=== PATIENT | male | born 1985 | race Caucasian/White ===

== ENCOUNTER 2017-12-08 17:23 | Emergency (ER) | payer BC ==
[2017-12-08 17:41] VITALS: BP 140/90
--- NOTE | 2017-12-08 18:01 | EDM.PDOC ---
ED HPI GENERAL MEDICAL PROBLEM - General Chief Complaint: ENT Problem Stated Complaint: SWOLLEN GLANDS NECK Time Seen by Provider: 12/08/17 17:56 Source of Information: Reports: Patient History Limitations: Reports: No Limitations - History of Present Illness INITIAL COMMENTS - FREE TEXT/NARRATIVE: 31 YO WM presents to ER with sudden onset glandular swelling in neck and jaw. Pt reports he was drinking poweraid when he develped pressure and discomfort in his jaw and behind his ears bilaterally. Pt reports recent viral URI which resolved a few days ago. Pt denies any fever/chills. Pt denies any difficulty swallowing or breathing. Pt reports PMH of tonsilectomy with adenoidectomy. Onset: Sudden Duration: Hour(s): (4) Location: Reports: Neck Severity: Moderate Improves with: Reports: None Worsens with: Reports: None Associated Symptoms: Reports: No Other Symptoms. Denies: Chest Pain, Cough, Fever/Chills, Headaches, Nausea/Vomiting, Rash, Shortness of Breath, Weakness Bilateral Neck Pain Score (Numeric/FACES): 7 - Related Data Allergies Allergy/AdvReac Type Severity Reaction Status Date / Time No Known Drug Allergies Allergy Other Verified 12/08/17 17:44 Home Meds: Home Meds Escitalopram [Lexapro] 20 mg PO DAILY 12/04/16 [History] Amoxicillin/Clavulanate K [Augmentin 875-125 MG] 1 tab PO BID #24 tablet [Rx] Ibuprofen [Motrin] 800 mg PO TID #15 tablet 12/08/17 [Rx] Past Medical History HEENT History: Reports: None Respiratory History: Reports: Pneumonia, Recurrent Gastrointestinal History: Reports: None Psychiatric History: Reports: Anxiety, Panic Attack - Infectious Disease History Infectious Disease History: Reports: Chicken Pox - Past Surgical History HEENT Surgical History: Reports: Tonsillectomy GI Surgical History: Reports: Hernia, Abdominal Male Surgical History: Reports: Vasectomy Social & Family History - Family History Family Medical History: Noncontributory - Tobacco Use Smoking Status *Q: Current Every Day Smoker Years of Tobacco use: 18 Packs/Tins Daily: 1 Used Tobacco, but Quit: No - Caffeine Use Caffeine Use: Reports: None - Alcohol Use Days Per Week of Alcohol Use: 3 Number of Drinks Per Day: 4 Total Drinks Per Week: 12 - Recreational Drug Use Recreational Drug Use: No ED ROS ENT - Review of Systems Review Of Systems: See Below Constitutional: Reports: No Symptoms. Denies: Fever, Chills, Malaise, Weakness , Night Sweats, Weight Loss HEENT: Denies: Dental Pain, Ear Pain, Eye Pain, Sinus Problem, Throat Pain Respiratory: Reports: No Symptoms Cardiovascular: Reports: No Symptoms Endocrine: Reports: No Symptoms GI/Abdominal: Reports: No Symptoms : Reports: No Symptoms Musculoskeletal: Reports: No Symptoms Skin: Reports: No Symptoms Neurological: Reports: No Symptoms Psychiatric: Reports: No Symptoms Hematologic/Lymphatic: Reports: Swollen Glands Immunologic: Reports: No Symptoms ED EXAM, ENT - Physical Exam Exam: See Below Exam Limited By: No Limitations General Appearance: Alert, WD/WN, No Apparent Distress Nose: Normal Inspection, Normal Mucousa, No Blood Mouth/Throat: Normal Inspection, Normal Gums, Normal Lips, Normal Oropharynx, Normal Teeth Head: Atraumatic, Normocephalic Neck: Supple, Full Range of Motion, Lymphadenopathy (L), Lymphadenopathy (R) Respiratory/Chest: No Respiratory Distress, Lungs Clear, Normal Breath Sounds, No Accessory Muscle Use, Chest Non-Tender Cardiovascular: Normal Peripheral Pulses, Regular Rate, Rhythm, No Edema, No Gallop, No JVD, No Murmur, No Rub GI/Abdominal: Normal Bowel Sounds, Soft, Non-Tender, No Organomegaly, No Distention, No Abnormal Bruit, No Mass Back: Normal Inspection, Full Range of Motion Extremities: Normal Inspection, Normal Range of Motion, Non-Tender, No Pedal Edema, Normal Capillary Refill Neurological: Alert, Oriented, CN II-XII Intact, Normal Cognition, Normal Gait, Normal Reflexes, No Motor/Sensory Deficits Psychiatric: Normal Affect, Normal Mood Skin: Warm, Dry, Intact, Normal Color, No Rash Course - Vital Signs Last Recorded V/S: Last Vital Signs Temp 37.2 C 12/08/17 17:36 Pulse 91 12/08/17 17:36 Resp 18 12/08/17 17:36 BP 140/90 12/08/17 17:36 Pulse Ox 97 12/08/17 17:36 - Orders/Labs/Meds Orders: Active Orders 24 hr Category Date Time Status CULTURE STREP A CONFIRMATION [] Stat Lab 12/08/17 17:55 Results STREP SCRN A RAPID W CULT CONF [] Stat Lab 12/08/17 17:55 Results Labs: Laboratory Tests 12/08/17 12/08/17 Range/Units 17:55 17:55 WBC 5.9 (5.0-10.0) 10^3/uL RBC 5.33 (4.50-6.00) 10^6/uL Hgb 15.7 (13.0-17.0) g/dL Hct 47.3 (40.0-52.0) % MCV 88.8 (82.0-92.0) fL MCH 29.4 (27.0-31.0) pg MCHC 33.2 (32.0-36.0) g/dL RDW 12.4 (11.5-14.5) % Plt Count 151 (150-300) 10^3/uL MPV 10.5 H (7.4-10.4) fL Neut % (Auto) 71.5 H (50.0-70.0) % Lymph % (Auto) 19.8 L (20.0-40.0) % [place] % (Auto) 5.9 (2.0-8.0) % Eos % (Auto) 2.8 (1.0-3.0) % Baso % (Auto) 0.0 (0.0-1.0) % Neut # (Auto) 4.2 (2.5-7.0) 10^3/uL Lymph # (Auto) 1.2 (1.0-4.0) 10^3/uL [place] # (Auto) 0.3 (0.1-0.8) 10^3/uL Eos # (Auto) 0.2 (0.1-0.3) 10^3/uL Baso # (Auto) 0.0 (0.0-0.1) 10^3/uL Monoscreen Negative (NEGATIVE) Meds: Medications Discontinued Medications Generic Name Dose Route Start Last Admin Trade Name Freq PRN Reason Stop Dose Admin Amoxicillin/Clavulanate Potassium 1 tab 12/08/17 19:00 Augmentin 875 Mg/125 Mg PO 12/09/17 07:01 Q12H MAGGIE Ibuprofen 800 mg 12/08/17 19:00 Motrin PO 12/09/17 11:01 Q8H MAGGIE Departure - Departure Time of Disposition: 18:54 Disposition: Home, Self-Care 01 Condition: Good Clinical Impression: Lymphadenitis - Discharge Information Prescriptions: Amoxicillin/Clavulanate K [Augmentin 875-125 MG] 1 tab PO BID #24 tablet Ibuprofen [Motrin] 800 mg PO TID #15 tablet Instructions: Lymphadenopathy Referrals: PCP,None [Primary Care Provider] - Joyce Rojo MD [Physician] - Forms: ED Department Discharge - My Orders Last 24 Hours: My Active Orders 12/08/17 17:55 CULTURE STREP A CONFIRMATION [RM] Stat STREP SCRN A RAPID W CULT CONF [RM] Stat - Assessment/Plan Last 24 Hours: My Active Orders 12/08/17 17:55 CULTURE STREP A CONFIRMATION [RM] Stat STREP SCRN A RAPID W CULT CONF [RM] Stat Assessment:: 1. Lymphadenitis Plan: 1. augmentin 875mg PO BID x 14 days 2. motrin 800mg PO Q8 x 5 days 3. follow up in clinic with PCP for further evaluation and treatment 4. return to ER for worsening symptoms
[2017-12-08] MEDS ORDERED: Amoxicillin/Clavulanate K 875-125 MG Tab PO SCH (19:00)
[2017-12-08] MEDS ORDERED: Ibuprofen 600 MG Tab PO SCH (19:00)
== END 2017-12-08 19:00 | disposition home or self-care (01) ==
LOC: KA.ED 17:23
DX: I88.9 Nonspecific lymphadenitis, unspecified (principal); F41.0 Panic disorder [episodic paroxysmal anxiety]; F17.210 Nicotine dependence, cigarettes, uncomplicated; Z98.890 Other specified postprocedural states; Z79.899 Other long term (current) drug therapy
CPT/HCPCS: 36415; 85025; 86308; 87081; 87430; 99283; A9270-GY

== ENCOUNTER 2023-06-28 09:43 | Emergency (ER) | payer OTHER ==
[2023-06-28 10:37] VITALS: BP 142/98; PULSE 99
== END 2023-06-28 10:45 | disposition home or self-care (01) ==
LOC: KA.ED 09:43
DX: S16.1XXA Strain of muscle, fascia and tendon at neck level, initial encounter (principal); W22.8XXA Striking against or struck by other objects, initial encounter; Y92.89 Other specified places as the place of occurrence of the external cause; Y99.0 Civilian activity done for income or pay
CPT/HCPCS: 72125; 99283; 99284